=== PATIENT | male | born 1970 | race Caucasian/White ===

== ENCOUNTER 2019-02-17 09:21 | Inpatient (IN) ==
[2019-02-17] MEDS ORDERED: SODIUM CHLORIDE 0.9% 500 ML IV SCH (09:45)
[2019-02-17 10:09] LABS: Basophils # (auto) 0.02 K/uL (0-0.2); Basophils % (auto) 0.2 %; Eosinophils # (auto) 0.03 K/uL (0-0.5); Eosinophils % (auto) 0.3 %; Hematocrit (blood only) 37.4 % (42-52); Hemoglobin 13.4 g/dL (14.0-18.0); Immature Granulocytes # (auto) 0.03 K/uL (0.00-0.02); Immature Granulocytes % (auto) 0.3 %; Lymphocytes # (auto) 1.68 K/uL (1.2-3.4); Mean Corpuscular Hgb Conc 35.8 g/dL (32-36); Mean Corpuscular Volume 82.7 fL (80-100); Monocytes # (auto) 0.91 K/uL (0.11-0.59); Monocytes % (auto) 8.6 %; Neutrophils # (auto) 7.86 K/uL (1.4-6.5); Neutrophils % (auto) 74.6 %; Platelet Count 573 K/uL (130-400); RDW Coefficient of Variation 12.5 % (11.5-14.5); RDW Standard Deviation 37.4 fL (36.4-46.3); Red Blood Count 4.52 M/uL (4.7-6.1); White Blood Count 10.53 K/uL (4.8-10.8)
[2019-02-17 10:26] LABS: Alanine Aminotransferase 20 U/L (12-78); Albumin Level 3.7 gm/dl (3.4-5.0); Aspartate Aminotransferase 16 U/L (15-37); BUN Creatinine Ratio 14.8 (10-20); Blood Urea Nitrogen 20 mg/dl (7-18); Calcium 9.4 mg/dl (8.5-10.1); Carbon Dioxide 20 mmol/L (21-32); Chloride 104 mmol/L (98-107); Creatinine Clr Calc Pharmacy 60.2 ml/min; Est GFR (African American) 71.6; Est GFR (Non-African American) 61.8; Glucose 135 mg/dl (70-99); Magnesium 2.1 mg/dl (1.8-2.4); Potassium 3.6 mmol/L (3.5-5.1); Sodium 136 mmol/L (136-145)
[2019-02-17 10:36] LABS: Albumin Globulin Ratio 0.8 (0.9-2); Alkaline Phosphatase 136 U/L (45-117); Bilirubin,Total 0.6 mg/dl (0.2-1); Globulin 4.7 gm/dl (2.5-4.0); Total Protein 8.4 gm/dl (6.4-8.2); Troponin I < 0.015 ng/ml (0-0.045)
[2019-02-17] MEDS ORDERED: IOVERSOL 100ml IV PRN (10:41)
--- NOTE | 2019-02-17 10:59 | CT Scan Report ---
CT head/brain wo con CLINICAL HISTORY: 48 years-old Male with syncope. Acute syncope TECHNIQUE: Multiple axial CT images of the head were obtained without contrast. A dose lowering tech nique was utilized adhering to the principles of ALARA. COMPARISON: CT cervical spine of same day. FINDINGS: No acute intracranial hemorrhage, midline shift, intracranial mass, hydrocephalus, territorial ischem ia or abnormal extra-axial collection. Senescent calcifications noted about the left lentiform nucleu s. The calvarium is intact. The paranasal sinuses, mastoid air cells, and middle ear cavities are clear . IMPRESSION: No acute intracranial abnormality or calvarial fracture. The above report was generated using voice recognition software. It may contain grammatical, syntax o r spelling errors. Electronically signed by: Geoffrey Schwarz M.D. 02/17/2019 10:58 AM
--- NOTE | 2019-02-17 11:02 | CT Scan Report ---
CERVICAL SPINE CT CT DOSE: 1260.91 mGy.cm HISTORY: fall, trauma TECHNIQUE: Multiaxial CT images of the cervical spine were performed and reformatted in the sagittal and coronal plane without the use of contrast. A dose lowering technique was utilized adhering to th e principles of ALARA. COMPARISON: None. FINDINGS: No fractures. No subluxation. Prevertebral soft tissues and the C1-C2 interval are intact. No pneumothorax. Reversal of the normal lordotic curvature. Mild to moderate disc space narrowing fro m C3 through C7. IMPRESSION: No fractures within the cervical spine. Electronically signed by: Vasquez Lester M.D. 02/17/2019 11:00 AM
--- NOTE | 2019-02-17 11:09 | CT Scan Report ---
CT soft tissue neck w con HISTORY: 48 years-old Male eval for abcess acute neck pain COMPARISON: CT head and CT cervical spine studies of same day. TECHNIQUE: Multiple axial CT images of the soft tissues of the neck were obtained following the intra venous ministration of 93 mL Optiray 320 IV contrast. A dose lowering technique was used consistent w ith the principals of ALARA. FINDINGS: There is a peripherally enhancing fluid collection centered about the left division sergeant space within th e left lateral pterygoid muscle measuring 3.3 x 2.2 x 2.4 cm (image 80 of series 106). Nasopharynx is patent. Mild prominence of the adenoid tonsils. 6 mm polypoid mucosal thickening of the right maxill annabella sinus. No prevertebral or retropharyngeal fluid collection. Paracentral fat planes are symmetric and well-maintained. Sublingual, submandibular and parotid glands appear unremarkable. Thyroid is unr emarkable. Subcentimeter hypodense posterior right thyroid nodule. No adenopathy by CT size criteria. Glottis and subglottic airway appear unremarkable. Vascular structures about the neck appear to be w ithin normal limits. Orbits are unremarkable. No acute intracranial abnormality. No pneumothorax. Ion g apices appear clear. Spondylitic spurring and facet arthrosis of the spine. Minimal mucosal thicken ing about the ethmoid sinuses. IMPRESSION: 1. Peripherally enhancing intramuscular fluid collection compatible with abscess involves the left la teral pterygoid. Airway appears patent. No retropharyngeal involvement. 2. No adenopathy. 3. Mild paranasal sinus disease. The above report was generated using voice recognition software. It may contain grammatical, syntax o r spelling errors. Electronically signed by: Geoffrey Schwarz M.D. 02/17/2019 11:08 AM
[2019-02-17 11:48] LABS: Appearance Urine Clear (Clear); Bilirubin Urine Negative (Negative); Blood Urine Negative (Negative); Color Urine Yellow; Glucose Urine UA Negative (Negative); Ketones Urine 1+ (Negative); Leukocyte Esterase Urine Negative (Negative); Nitrite Urine Negative (Negative); Protein Urine Negative (Negative); Specific Gravity Urine 1.031 (1.000-1.030); Urobilinogen Urine Negative (Negative); pH Urine 6.5 (4.5-7.5)
--- NOTE | 2019-02-17 11:54 | XRay Report ---
XR mandible min 4V routine CLINICAL HISTORY: eval for impacted tooth left lower side COMPARISON STUDY: Neck CT 02/17/2019. FINDINGS: The most distal bilateral mandibular/lower molars are impacted. The right lower molar demon strates partial interruption but is primarily impacted. There is also suggestion of an impacted left upper molar. No periapical lucencies identified within the mandible or maxilla. Suspect a small focal cavity within the medial aspect of ADA 9. IMPRESSION: 1. Impacted bilateral lower molars. 2. There is also suggestion of an impacted left upper molar. Electronically signed by: Vasquez Lester M.D. 02/17/2019 11:53 AM
[2019-02-17] MEDS ORDERED: AMPICILLIN/SULBACTAM SOD 3,000 MG in 0.9 % SODIUM CHLORIDE 100 ML IV STA (12:13)
[2019-02-17] MEDS ORDERED: MoRPHine SULFATE 4 MG/ML 1 ML CARP\\VIAL IV STA (13:17)
[2019-02-17] MEDS ORDERED: ACETAMINOPHEN 1000 MG/100 ML IV IV PRN (14:21)
[2019-02-17] MEDS ORDERED: MoRPHine SULFATE 4 MG/ML 1 ML CARP\\VIAL IV PRN (14:21)
[2019-02-17] MEDS ORDERED: ACETAMINOPHEN 325 MG TAB PO PRN (14:21)
--- NOTE | 2019-02-17 14:48 | History & Physical Report ---
Date of Service February 17, 2019 Assessment & Plan (1) Dental abscess: (2) Facial abscess: -Admit to [facility] with telemetry -Patient presenting from [facility] for evaluation of a syncopal episode which will be described below -Has been being treated for a left facial/dental abscess for the past 2 weeks with oral clindamycin -CT neck shows fluid collection centered about the left youth advocate space within the left lateral pterygoid muscle measuring 3.3 x 2.2 x 2.4 cm -Patient does not appear septic -Airway is currently maintained -ED notified Dr. Haywood who is planning on possible intervention tomorrow -Received IV Unasyn in the ED, will continue with (3) Syncope: -Likely vasovagal/due to hypovolemia from recent poor p.o. intake -Head CT negative -Troponin negative, EKG without acute ST changes -Continue supportive care with IVF -Monitor orthostatic BPs -Monitor on telemetry -Consider further work-up if recurrence (4) HTN (hypertension): -BP elevated, likely secondary to pain and missed medications this morning -will attempt pain control and give home doses of lisinopril and amlodipine now -Holding chlorthalidone while receiving IVF as above -Continue monitor BP, provide additional antihypertensive if needed (5) DVT prophylaxis: -SCDs due to possible invasive procedure tomorrow History of Present Illness Chief Complaint: Syncope Primary Care Provider: [facility] 48-year-old male who presents to the ED for evaluation after a syncopal event today. Patient was seen in the ED on 02/09 for a dental/facial abscess. Prior to the ED visit, patient had been taking clindamycin for 6 days. Patient was discharged from the ED on 02/09 with instructions to continue clindamycin and to follow-up with Dr. Haywood. Patient reports he has been having increased pain and swelling to the left side of his face. He reports that he has felt feverish however did not take his temperature. He has had some green, purulent drainage from his bottom molars on the left. His oral intake has been significantly reduced because he is having trouble opening his mouth. Today, patient reports that when he stood up from his bed, he felt very lightheaded and subsequently passed out. He did strike his head. He was able to be aroused and was brought to the ED for further evaluation. Patient denies associated chest pain or shortness of breath. He had some numbness and tingling of both of his hands and arms however reports he was also hyperventilating the time. No other unilateral weakness. He has had a headache since a syncopal event. No abdominal pain, vomiting, nausea. Yesterday he reports he developed some diarrhea. He denies any urinary symptoms. In the ED, initial troponin is negative and EKG does not show any acute ST changes. Head CT and cervical spine CT are negative for acute findings. Patient is hypertensive but otherwise hemodynamically stable. CT neck shows peripherally enhancing intramuscular fluid collection compatible with abscess involves the left lateral pterygoid. Patient was given IVF and IV Unasyn. Allergies Allergy/AdvReac Type Severity Reaction Status Date / Time Sulfa (Sulfonamide Allergy Unknown Unverified 02/17/19 10:21 Antibiotics) Home Medications Home Medications Medication Instructions Recorded Confirmed Type acetaminophen 650 mg PO TID PRN 02/09/19 02/17/19 History amlodipine 10 mg PO DAILY 02/09/19 02/17/19 History chlorthalidone 25 mg PO DAILY 02/09/19 02/17/19 History clindamycin HCl 150 mg PO TID 02/09/19 02/17/19 History lisinopril 40 mg PO DAILY 02/09/19 02/17/19 History naproxen 500 mg PO BID 02/09/19 02/17/19 History Past Med/Surg History Medical History Cervical stenosis of spine (Chronic) Herniated disc (Chronic) HTN (hypertension) (Chronic) Surgical History No pertinent past surgical history (Chronic) Family History Mother Lung cancer Father Heart disease Social History Preferred Language: Italian Communication Ability: Effective Drying And Winding Supervisor Required: No Beliefs That Will Affect Care: None Current Living Situation: Other Current Living Situation Comment: [facility] Other Information That Helps Us Care for You: No Feels Safe at Home: Yes Smoking Status: Former smoker Hx Alcohol Use: No Review of Systems Review of Systems: ROS per HPI, all other systems reviewed and negative Physical Exam Constitutional: WD/WN, vitals as above Eyes: PERRL, conjunctivae normal, anicteric sclerae ENMT: Ears: no external ear abnormality Nose: + face asymmetric (Left facial edema noted); no external nose abnormality Mouth: + trismus Respiratory: normal respiratory effort, lungs clear to auscultation Cardiovascular: Rate/Rhythm: regular rate and regular rhythm Vessels: normal peripheral pulses Extremities: no edema Gastrointestinal (Abdomen): normal bowel sounds, soft, nontender, no hepatosplenomegaly Musculoskeletal: no cyanosis or clubbing, extremities motor strength 5/5 Skin: no rashes, warm and dry Neurologic: PERRL, EOMI, accommodation nl, no face palsy, no dysarthria Psychiatric: A+Ox3, euthymic affect Results & Data Vital Signs (Past 12 Hours) Vital Signs Temp Pulse Pulse Resp BP BP Pulse Ox 02/17/19 13:00 98 H 16 204/109 H 98 02/17/19 11:15 107 H 16 173/114 H 100 02/17/19 09:48 100 02/17/19 09:31 37.0 C 98 H 16 172/118 H 100 Laboratory Results Short CBC 02/17/19 Range/Units 09:57 WBC 10.53 (4.8-10.8) K/uL Hgb 13.4 L (14.0-18.0) g/dL Hct 37.4 L (42-52) % Plt Count 573 H (130-400) K/uL BMP 02/17/19 09:57 Sodium 136 Potassium 3.6 Chloride 104 Carbon Dioxide 20 L BUN 20 H Creatinine 1.34 Glucose 135 H Calcium 9.4 Cardiac Enzymes 02/17/19 Range/Units 09:57 Troponin I < 0.015 (0-0.045) ng/ml Liver Function 02/17/19 Range/Units 09:57 Total Bilirubin 0.6 (0.2-1) mg/dl AST 16 (15-37) U/L ALT 20 (12-78) U/L Alkaline Phosphatase 136 H (45-117) U/L Albumin 3.7 (3.4-5.0) gm/dl Urine 02/17/19 Range/Units 11:30 Urine Color Yellow Urine Appearance Clear (Clear) Urine pH 6.5 (4.5-7.5) Ur Specific [place] 1.031 H (1.000-1.030) Urine Protein Negative (Negative) Urine Glucose (UA) Negative (Negative) Diagnostic Findings CERVICAL SPINE CT IMPRESSION: No fractures within the cervical spine. HEAD CT IMPRESSION: No acute intracranial abnormality or calvarial fracture. SOFT TISSUE NECK CT IMPRESSION: 1. Peripherally enhancing intramuscular fluid collection compatible with abscess involves the left lateral pterygoid. Airway appears patent. No retropharyngeal involvement. 2. No adenopathy. 3. Mild paranasal sinus disease. MANDIBLE X-RAY IMPRESSION: 1. Impacted bilateral lower molars. 2. There is also suggestion of an impacted left upper molar. Code Status & VTE Plan VTE Prophylaxis Plan VTE Prophylaxis will be ordered: Yes Supervising Physician Co-Signing Physician Notes I saw this patient with the physician sugar laboratory assistant, I participated in the history, physical, review of systems, and physical exam. I reviewed the medications with the patient and the physician sugar laboratory assistant and helped reconcile the medications. I helped take a detailed family and social history as well. I formulated the assessment and plan personally with the physician sugar laboratory assistant and went over it with the patient. ROS-No Headache, No Visual Changes, No Nausea, No Vomiting, No Fever, No Chills, No Neck Pain or Stiffness, No Chest Pain, No Palpitations, No SOB, No WHEATLEY, No Cough, No Sputum, No Wheezing, No Abdominal Pain, No Diarrhea, No Hematemesis, No Hemoptysis, No Unexpected Weight Loss, No Flank pain, No Melena, No Hematochezia, No Frequency, No Urgency, No Burning, No Hematuria, No Rashes, No Diaphoresis. Appetite is Normal, Sore Left Jaw and face Physical Exam Gen-AAO x 3, NAD, Afebrile Head-NCAT, EOMI, PERRLA, Anicteric Sclera, No Posterior Pharyngeal Erythema, Decr jaw ROM Neck-Supple, No JVD, No Thyromegaly, No Masses, No LAD, No Bruits Lungs-Clear to Auscultation Bilaterally, No Rales, No Rhonchi, No Wheezing, No Crepitus Chest-No S4, +S1, +S2, No S3, No Murmurs, No Rubs, No Gallops, No Ectopy Abdomen-Soft, Bowel Sounds Present, Non Tender, Non Distended, No Hepatomegaly, No Splenomegaly, No Palpable Masses, No Rebound, No Rigidity, No Guarding Musculoskeletal-Full Range of Motion Bilaterally, No CVAT Extremities-No Cyanosis, No Clubbing, No Edema Nuero-Cranial Nerves II-XII grossly intact, Motor WNL, DTRs WNL, Strength WNL, Non Focal Psych-Normal Mood
[2019-02-17] MEDS: AMLODIPINE BESYLATE 5 MG TAB PO SCH (15:43)
[2019-02-17] MEDS: SODIUM CHLORIDE 0.9% 1000ML 1,000 ML IV SCH (15:43)
[2019-02-17] MEDS: LISINOPRIL 40 MG TAB PO SCH (15:43)
[2019-02-17] MEDS: KETOROLAC TROMETHAMINE 15 MG/ML VIAL IV PRN (16:22)
--- NOTE | 2019-02-17 16:57 | Surgery Consultation ---
Date of Consultation February 17, 2019 Patient is a 48 y/o inmate at [facility]. CC=pain, swelling, sensitivity to pressure and temperature on the teeth lower left side. Pus extrudes from fistula distal to # 18. CT scan show increase of fluid w/in the left lateral massitor space since last week. He is in pain, has trismus and failed out patient treatment. [facility] planned to set him up for extraction of a few lower left teeth next month! His pain and swelling got worse and he was brought to ED --CT scan and plain XR show abscess left side and carious teeth # 18,20 and ? # 17 which is an impacted tooth. I am planning to take to OR for I&D of left facial abscess infection extraction of # 18 and # 20 and possible Impacted # 17 depending on findings at time of surgery. Reviewed risk=pain,swelling,bleeding, nerve injury which could be permanent, trismus, TMJ issues, dry socket, bone infection. Plan GA in OR tomorrow NPO 12 midnight Consent to be signed chart reviewed History of Present Illness Attending Physician: Suhail Adorno MD Allergies Allergy/AdvReac Type Severity Reaction Status Date / Time Sulfa (Sulfonamide Allergy Unknown Unverified 02/17/19 10:21 Antibiotics) Home Medications Home Medications Medication Instructions Recorded Confirmed Type acetaminophen 650 mg PO TID PRN 02/09/19 02/17/19 History amlodipine 10 mg PO DAILY 02/09/19 02/17/19 History chlorthalidone 25 mg PO DAILY 02/09/19 02/17/19 History clindamycin HCl 150 mg PO TID 02/09/19 02/17/19 History lisinopril 40 mg PO DAILY 02/09/19 02/17/19 History naproxen 500 mg PO BID 02/09/19 02/17/19 History Patient History Medical History Cervical stenosis of spine (Chronic) Herniated disc (Chronic) HTN (hypertension) (Chronic) Surgical History No pertinent past surgical history (Chronic) Family History Mother Lung cancer Father Heart disease Social History Preferred Language: German Communication Ability: Effective Certified Physical Therapist Assistant Required: No Beliefs That Will Affect Care: None Current Living Situation: Other Current Living Situation Comment: [facility] Other Information That Helps Us Care for You: No Feels Safe at Home: Yes Smoking Status: Former smoker Hx Alcohol Use: No Results & Data Vital Signs (Past 12 Hours) Vital Signs Temp Pulse Pulse Resp BP BP Pulse Ox 02/17/19 15:03 37.0 C 95 H 20 160/98 H 99 02/17/19 14:48 37.3 C 96 H 18 167/112 H 100 02/17/19 13:00 98 H 16 204/109 H 98 02/17/19 11:15 107 H 16 173/114 H 100 02/17/19 09:48 100 02/17/19 09:31 37.0 C 98 H 16 172/118 H 100
[2019-02-17] MEDS: AMPICILLIN/SULBACTAM SOD 3,000 MG in 0.9 % SODIUM CHLORIDE 100 ML IV SCH (18:21)
[2019-02-18] MEDS: AMPICILLIN/SULBACTAM SOD 3,000 MG in 0.9 % SODIUM CHLORIDE 100 ML IV SCH ×5 (00:35→23:40)
[2019-02-18] MEDS: KETOROLAC TROMETHAMINE 15 MG/ML VIAL IV PRN ×2 (00:35→17:59)
[2019-02-18] MEDS: SODIUM CHLORIDE 0.9% 1000ML 1,000 ML IV SCH ×3 (00:35→23:05)
[2019-02-18] MEDS: AMLODIPINE BESYLATE 5 MG TAB PO SCH (07:35)
[2019-02-18] MEDS: LISINOPRIL 40 MG TAB PO SCH (07:35)
[2019-02-18 07:42] LABS: Hematocrit (blood only) 33.3 % (42-52); Hemoglobin 11.5 g/dL (14.0-18.0); Mean Corpuscular Hgb Conc 34.5 g/dL (32-36); Mean Corpuscular Volume 84.3 fL (80-100); Mean Platelet Volume 8.8 fL (7.4-10.4); Platelet Count 444 K/uL (130-400); RDW Coefficient of Variation 12.7 % (11.5-14.5); RDW Standard Deviation 39.1 fL (36.4-46.3); Red Blood Count 3.95 M/uL (4.7-6.1); White Blood Count 8.16 K/uL (4.8-10.8)
[2019-02-18 08:30] LABS: BUN Creatinine Ratio 10.2 (10-20); Calcium 8.7 mg/dl (8.5-10.1); Creatinine Clr Calc Pharmacy 70.9 ml/min; Est GFR (African American) 104.5; Est GFR (Non-African American) 90.2; Potassium 4.1 mmol/L (3.5-5.1); Prostate Specific Antigen 0.714 ng/ml (0-4)
[2019-02-18] MEDS ORDERED: BUPIVACAINE/EPINEPHRINE 0.5% 1:200,000 1.8 ML CARP ONE (08:45)
[2019-02-18] MEDS ORDERED: MIDAZOLAM HCL 1 MG/ML 2ML VIAL ONE (08:48)
[2019-02-18] MEDS ORDERED: LIDOCAINE HCL 2% 2 ML VIAL/AMP(20MG/ML) INFIL ONE (08:48)
[2019-02-18] MEDS ORDERED: fentaNYL citrate 100 MCG/2 ML VIAL ONE (08:48)
[2019-02-18] MEDS ORDERED: PROPOFOL IV EMULSION 10 MG/ML 20 ML VIAL IV ONE (08:48)
[2019-02-18] MEDS ORDERED: ONDANSETRON INJ 2 MG/ML 2 ML VIAL ONE (08:48)
[2019-02-18] MEDS ORDERED: LARYING-O-JET KIT (LTA) ONE (08:48)
[2019-02-18] MEDS ORDERED: SUCCINYLCHOLINE CHLORIDE 20 MG/ML 10 ML VIAL ONE (08:48)
[2019-02-18] MEDS ORDERED: KETOROLAC 30 MG/ML VIAL ONE (08:48)
[2019-02-18] MEDS ORDERED: DEXAMETHASONE SOD INJ 4 MG/ML VIAL ONE (08:48)
[2019-02-18] MEDS ORDERED: ROCURONIUM BROMIDE 10 MG/ML 5 ML VIAL ONE (08:48)
--- NOTE | 2019-02-18 08:55 | History & Physical Bridge Note ---
Date of Service February 18, 2019 History & Physical Bridge Note I have examined the patient, reviewed the History & Physical and in the interval since the performance of the History & Physical I have noted the following changes of clinical significance: no changes noted Review of the XRs show carious # 18 and 20 which are very sensitive to pressure and percussion. Plan surgery this AM with I&D with extractions evaluate CBI # 17 and remove only as needed as this tooth is very deep.
[2019-02-18] MEDS ORDERED: STERILE IRRIGATING OPTH SOLUTION (BSS) 15ML ONE (08:57)
[2019-02-18] MEDS ORDERED: CHLORHEXIDINE GLUCONATE 0.12% 480 ML ONE (08:58)
--- NOTE | 2019-02-18 09:05 | Anesthesiology Consultation ---
Date of Service February 18, 2019 Assessment & Plan (1) Encounter for pre-operative examination: Chart Review Chart Review: Acceptable Risk for Surgery and Patient NOT seen in Pre Admission Testing Consults Requested none ASA ASA2 Proposed Anesthesia Anesthesia Type: General Risk / Benefits Reviewed With: PT / POA / Parent / Guardian, Accepts Plan and In formed Consent Obtained History Surgery Operation Date: 02/18/19 09:10 Proposed Procedures p Removal of Teeth x3 - #17, #18, and #20; Left Incision and Drainge Facial Cellulitis - Sourav Haywood DMD Height/Weight Height: 5 ft 4 in Weight: 55 kg Allergies Allergy/AdvReac Type Severity Reaction Status Date / Time Sulfa (Sulfonamide Allergy Rash Unverified 02/18/19 08:27 Antibiotics) Medications Home Medications Medication Instructions Recorded Confirmed Last Taken acetaminophen 650 mg PO TID PRN 02/09/19 02/17/19 02/17/19 amlodipine 10 mg PO DAILY 02/09/19 02/17/19 02/16/19 chlorthalidone 25 mg PO DAILY 02/09/19 02/17/19 02/16/19 clindamycin HCl 150 mg PO TID 02/09/19 02/17/19 02/16/19 lisinopril 40 mg PO DAILY 02/09/19 02/17/19 02/16/19 naproxen 500 mg PO BID 02/09/19 02/17/19 02/16/19 Active Medications Generic Name Dose Route Start Last Admin Trade Name Freq PRN Reason Stop Dose Admin Acetaminophen 1,000 mg 02/17/19 14:21 02/17/19 22:03 Ofirmev IV 03/19/19 14:20 1,000 mg Q8H PRN Administration Moderate Pain Amlodipine Besylate 10 mg 02/17/19 14:21 02/18/19 07:35 Norvasc PO 03/19/19 14:20 10 mg DAILY EFREN Administration Sodium Chloride 1,000 mls @ 100 mls/hr 02/17/19 14:21 02/18/19 08:47 Nss 1000ml IV 03/19/19 14:20 0 mls/hr .Q10H EFREN Infusion Ampicillin Sodium/Sulbactam 108 mls @ 200 mls/hr 02/17/19 18:00 02/18/19 07:00 Sodium 3,000 mg/ Sodium IV 02/27/19 17:59 Infused Chloride Q6H EFREN Infusion Protocol Ketorolac Tromethamine 15 mg 02/17/19 16:09 02/18/19 00:35 Toradol IV 02/22/19 16:08 15 mg Q8H PRN Administration Pain Lisinopril 40 mg 02/17/19 14:21 02/18/19 07:35 Zestril PO 03/19/19 14:20 40 mg DAILY EFREN Administration Morphine Sulfate 4 mg 02/17/19 14:21 02/18/19 04:20 Morphine Sulfate IV 03/03/19 14:20 4 mg Q4H PRN Administration Severe Pain NPO Date Last Intake of Fluids: 02/17/19 Time Last Intake of Fluids: 22:30 Date Last Intake of Solids: 02/17/19 Time Last Intake of Solids: 22:30 Past Medical History Medical History Cervical stenosis of spine (Chronic) Herniated disc (Chronic) HTN (hypertension) (Chronic) Chronic kidney disease (CKD) Stage 3 Exercise / Class Metabolic Activity II 4-5 Yardwork/Stairs/Walk up hill Past Family History Family History Mother Lung cancer Father Heart disease Past Surgical History Surgical History No pertinent past surgical history (Chronic) History of sinus surgery Past Anesthesia History No Hx of Anesthesia Complications History of PONV No Hx of PONV and No Hx of Motion Sickness Social History Smoking Status: Former smoker Hx Alcohol Use: No Hx Substance Use: No Review of Systems Patient denies active symptoms of GERD. Negative for chest pain or shortness of breath. Physical Exam Vital Signs Last Vital Signs Temp 36.9 C 02/18/19 08:28 Pulse 81 02/18/19 08:28 Resp 20 02/18/19 08:28 BP 167/98 H 02/18/19 08:28 Pulse Ox 100 02/18/19 08:28 Constitutional not obese ENMT Mouth: + small oral opening; no TMJ abnormality Thyromental Distance: > or= 3.5 Finger Breadths Mallampati Class: III Mouth / Teeth: 1. Chipped Neck normal visual inspection; neck extension not limited Respiratory normal respiratory effort Auscultation: lungs clear to auscultation bilaterally Cardiovascular Rate/Rhythm: regular rate and regular rhythm Heart Sounds: no murmur Psychiatric Orientation: alert and oriented x 3 Testing Laboratory Results 02/18/19 07:24 02/18/19 07:24 Urine Color Yellow 02/17/19 11:30 Urine Appearance Clear (Clear) 02/17/19 11:30 Urine pH 6.5 (4.5-7.5) 02/17/19 11:30 Ur Specific [place] 1.031 (1.000-1.030) H 02/17/19 11:30 Urine Protein Negative (Negative) 02/17/19 11:30 Urine Glucose (UA) Negative (Negative) 02/17/19 11:30 Urine Ketones 1+ (Negative) H 02/17/19 11:30 Urine Nitrite Negative (Negative) 02/17/19 11:30 Ur Leukocyte Esterase Negative (Negative) 02/17/19 11:30
[2019-02-18] MEDS ORDERED: ONDANSETRON INJ 2 MG/ML 2 ML VIAL IV PRN (09:55)
[2019-02-18] MEDS ORDERED: ePHEDrine sulfate 50 MG/ML AMP IV PRN (09:55)
[2019-02-18] MEDS ORDERED: HYDROmorphone INJ 2 MG/ML SYR/VIAL IV PRN (09:55)
[2019-02-18] MEDS ORDERED: ATROPINE SULFATE 0.1 MG/ML 10ML SYR IV PRN (09:55)
[2019-02-18] MEDS ORDERED: PROMETHAZINE HCL 12.5 MG in SODIUM CHLORIDE 0.9% 50 ML IV PRN (09:55)
--- NOTE | 2019-02-18 10:42 | Post Operative Brief Note ---
Immediate Post Op Note v1 Date of Surgery February 18, 2019 Pre & Post Diagnosis Operation Date: 02/18/19 09:10 Pre-Op Diagnosis: DENTAL ABSCESS causing severe trismus and facial swelling Post-Op Diagnosis: DENTAL ABSCESS causing severe trismus and facial swelling left side Procedure Operation Date: 02/18/19 09:10 Actual Procedures p Removal of Teeth - Impacted complete #17, Surgical extraction abscessed #18, and #20; Left Incision and Drainage Facial Cellulitis(Left) - Sourav Haywood DMD Surgeon Sourav Haywood DMD Dock Operations Supervisor none Estimated Blood Loss 5 Findings Consistent with Post-Op Diagnosis
[2019-02-18] MEDS: fentaNYL citrate 100 MCG/2 ML VIAL IV PRN ×2 (11:20→11:31)
[2019-02-18] MEDS ORDERED: HydrALAZINE HCL 20 MG/ML VIAL IV STA (11:30)
[2019-02-18] MEDS ORDERED: HydrALAZINE HCL 20 MG/ML VIAL ONE (11:33)
--- NOTE | 2019-02-18 12:04 | Anesthesiology Progress Note ---
Date of Service February 18, 2019 Anesthesia Post Procedure Vital Signs Vital Signs: Temp Pulse Pulse Pulse Resp BP BP 02/18/19 11:55 36.5 C 69 12 167/82 H 02/18/19 11:50 87 11 L 164/102 H 02/18/19 11:40 62 11 L 170/86 H 02/18/19 11:30 66 11 L 171/112 H 02/18/19 11:20 64 16 185/103 H 02/18/19 11:10 64 16 181/112 H 02/18/19 11:00 67 13 170/117 H 02/18/19 10:52 36.2 C L 64 15 159/93 H 02/18/19 08:28 36.9 C 81 20 167/98 H 02/18/19 07:13 36.8 C 64 18 155/91 H 02/18/19 04:00 36.7 C 69 19 143/78 H 02/17/19 23:25 36.8 C 80 18 152/90 H 02/17/19 22:30 90 02/17/19 19:20 37.2 C 89 20 122/74 02/17/19 15:03 37.0 C 95 H 20 160/98 H 02/17/19 14:48 37.3 C 96 H 18 167/112 H 02/17/19 13:00 98 H 16 204/109 H Pulse Ox 02/18/19 11:55 98 02/18/19 11:50 97 02/18/19 11:40 96 02/18/19 11:30 97 02/18/19 11:20 100 02/18/19 11:10 100 02/18/19 11:00 100 02/18/19 10:52 100 02/18/19 08:28 100 02/18/19 07:13 98 02/18/19 04:00 99 02/17/19 23:25 97 02/17/19 22:30 02/17/19 19:20 97 02/17/19 15:03 99 02/17/19 14:48 100 02/17/19 13:00 98 Pain Intensity Teeth: Pain Intensity: 5 Transfer of Care Handoff Completed per policy Notes Mental Status: alert / awake / arousable and participated in evaluation Patient Amnestic to Procedure: Yes Nausea / Vomiting: adequately controlled Pain: adequately controlled Airway Patency, RR, SpO2: stable & adequate BP & HR: stable & adequate Hydration State: stable & adequate Anesthetic Complications: no major complications apparent and Pt Satisfied with anesthetic care
--- NOTE | 2019-02-18 15:59 | Hospitalist Progress Note ---
Date of Service February 18, 2019 Assessment & Plan (1) Dental abscess: Status post extraction of 3 teeth. #17, #18 and #20 on 02/18 Complains of some pain Appreciate input from Dr. Haywood Will advance diet as tolerated Likely discharge tomorrow on oral Augmentin (2) Facial abscess: -Patient presenting from [facility] for evaluation of a syncopal episode which will be described below -Has been being treated for a left facial/dental abscess for the past 2 weeks with oral clindamycin -CT neck shows fluid collection centered about the left commissary assistant space within the left lateral pterygoid muscle measuring 3.3 x 2.2 x 2.4 cm -Received IV Unasyn in the ED and will continue -No facial cellulitis (3) Syncope: -Likely vasovagal/due to hypovolemia from recent poor p.o. intake -Head CT negative -Troponin negative, EKG without acute ST changes -Continue supportive care with IVF -Received intravenous fluid -Clinically stable (4) HTN (hypertension): -BP elevated, likely secondary to pain and missed medications this morning -Blood pressure is controlled -Continue with his home medication (5) DVT prophylaxis: -SCDs due to possible invasive procedure tomorrow Likely discharge tomorrow Subjective 02/18 The patient was seen and examined in medical floor He is status post removal of 3 teeth, #17,[address] haywood Complains to have pain and numbness in the left side of the face and lips No redness Has been tolerating clears orally Review of Systems Review of Systems: All systems reviewed and is unremarkable except as noted below Ear, Nose, Mouth, Throat: + facial pain, + mouth lesions and + dental pain Physical Exam Physical Exam: Minimal distress at rest status post teeth extraction x3 Constitutional: + ill appearing Eyes: PERRL, conjunctivae normal, anicteric sclerae ENMT: Ears: no external ear abnormality Nose: + face asymmetric (Left facial edema noted); no external nose abnormality Mouth: + trismus Respiratory: normal respiratory effort; no respiratory distress Auscultation: lungs clear to auscultation bilaterally Cardiovascular: Rate/Rhythm: regular rate and regular rhythm Vessels: normal peripheral pulses Extremities: no edema Gastrointestinal (Abdomen): Inspection/Auscultation: normal bowel sounds Percussion/Palpation: abdomen soft Musculoskeletal: no cyanosis or clubbing, extremities motor strength 5/5 Skin: no rashes, warm and dry Neurologic: PERRL, EOMI, accommodation nl, no face palsy, no dysarthria Psychiatric: A+Ox3, euthymic affect Results & Data Vital Signs (Past 12 Hours) Vital Signs Temp Pulse Pulse Resp BP BP Pulse Ox 02/18/19 15:23 37.2 C 107 H 18 135/86 98 02/18/19 14:04 36.5 C 90 18 146/81 H 99 02/18/19 11:55 36.5 C 69 12 167/82 H 98 02/18/19 11:50 87 11 L 164/102 H 97 02/18/19 11:49 36.7 C 88 18 151/86 H 97 02/18/19 11:40 62 11 L 170/86 H 96 02/18/19 11:30 66 11 L 171/112 H 97 02/18/19 11:20 64 16 185/103 H 100 02/18/19 11:10 64 16 181/112 H 100 02/18/19 11:00 67 13 170/117 H 100 02/18/19 10:52 36.2 C L 64 15 159/93 H 100 02/18/19 08:28 36.9 C 81 20 167/98 H 100 02/18/19 07:13 36.8 C 64 18 155/91 H 98 02/18/19 04:00 36.7 C 69 19 143/78 H 99 Laboratory Results Short CBC 02/18/19 Range/Units 07:24 WBC 8.16 (4.8-10.8) K/uL Hgb 11.5 L (14.0-18.0) g/dL Hct 33.3 L (42-52) % Plt Count 444 H (130-400) K/uL BMP 02/18/19 07:24 Sodium 141 Potassium 4.1 Chloride 108 H Carbon Dioxide 27 BUN 10 D Creatinine 0.98 D Glucose 98 Calcium 8.7 Medications Administered Current Inpatient Medications Acetaminophen (Tylenol) 650 mg PO Q4H PRN PRN Reason: pain/fever Stop: 03/19/19 14:20 Acetaminophen (Ofirmev) 1,000 mg IV Q8H PRN PRN Reason: Moderate Pain Stop: 03/19/19 14:20 Last Admin: 02/17/19 22:03 Dose: 1,000 mg Documented by: Amlodipine Besylate (Norvasc) 10 mg PO DAILY [facility] Stop: 03/19/19 14:20 Last Admin: 02/18/19 07:35 Dose: 10 mg Documented by: Sodium Chloride (Nss 1000ml) 1,000 mls @ 100 mls/hr IV .Q10H [facility] Stop: 03/19/19 14:20 Last Admin: 02/18/19 12:19 Dose: 100 mls/hr Documented by: Ampicillin Sodium/Sulbactam Sodium 3,000 mg/ Sodium Chloride 108 mls @ 200 mls/hr IV Q6H [facility]; Protocol Stop: 02/27/19 17:59 Last Admin: 02/18/19 12:05 Dose: Not Given Documented by: Ketorolac Tromethamine (Toradol) 15 mg IV Q8H PRN PRN Reason: Pain Stop: 02/22/19 16:08 Last Admin: 02/18/19 00:35 Dose: 15 mg Documented by: Lisinopril (Zestril) 40 mg PO DAILY [facility] Stop: 03/19/19 14:20 Last Admin: 02/18/19 07:35 Dose: 40 mg Documented by: Morphine Sulfate (Morphine Sulfate) 4 mg IV Q4H PRN PRN Reason: Severe Pain Stop: 03/03/19 14:20 Last Admin: 02/18/19 04:20 Dose: 4 mg Documented by:
[2019-02-19] MEDS: KETOROLAC TROMETHAMINE 15 MG/ML VIAL IV PRN ×3 (01:51→18:49)
[2019-02-19] MEDS: AMPICILLIN/SULBACTAM SOD 3,000 MG in 0.9 % SODIUM CHLORIDE 100 ML IV SCH ×4 (05:37→23:33)
--- NOTE | 2019-02-19 08:03 | Surgery Progress Note ---
Date of Service Post Op Day # 1 doing very well this AM. Still stiff jaw--suggested exersize to increase the opening. Swelling minimal for the surgery, oral area looks good OK for Discharge today--I sent instructions to [facility] for follow up care. Suggest that hospitalist service RX-Tylenol # 3 x 15 1 q 4 hrs and Augmentin 875 x 20 1 q 12 hrs for out patient medicine Suggested softer diet and increase as tolerated Impression: Leonel did very well from the surgery yesterday and is healing very well at this time. Please Discharge today. February 19, 2019 Results & Data Vital Signs (Past 12 Hours) Vital Signs Temp Pulse Pulse Pulse Resp BP Pulse Ox 02/19/19 07:06 37 C 92 H 16 123/71 97 02/19/19 05:00 36.9 C 58 L 20 126/63 98 02/19/19 00:00 92 H 02/18/19 22:51 36.6 C 83 18 117/73 97
[2019-02-19] MEDS: AMLODIPINE BESYLATE 5 MG TAB PO SCH (08:14)
[2019-02-19] MEDS: LISINOPRIL 40 MG TAB PO SCH (08:14)
[2019-02-19] MEDS: SODIUM CHLORIDE 0.9% 1000ML 1,000 ML IV SCH ×2 (08:18→18:56)
--- NOTE | 2019-02-19 11:26 | Emergency Department Note ---
Entered by Serenity Quispe acting as a scribe for History of Present Illness General Chief complaint: Head Injury, Minor Time Seen by Provider: 02/17/19 09:34 Source: patient History of Present Illness Onset (ago): hour(s) (this morning) Location: head Pain Consistency: + other (episode) Maximum Pain Intensity: 7 Quality: + other (injury secondary to a fall) Associated symptoms: + other (left eye pressure/pain, diarrhea (resolved), fever (resolved), dizziness, loss of consciousness) The patient is a 48 year old male that is presenting to the Emergency Room with complaints of an episode of a head injury that occurred this morning after a fall. The patient reports that he felt dizzy while walking and went to sit down when he fell. He states that he was told he lost consciousness and that he was found unresponsive on the floor. He notes that he believes he hit the back of his head due to the pain in that area. He reports that he has head pain and left eye pain. He notes that he feels a pressure in his left eye. He denies any chest pain, shortness of breath, or abdominal pain. The patient denies any injuries below the neck. He notes that he has some neck pain at baseline and is unsure if he has any new neck injury. He reports that he had a fever and diarrhea yesterday which has since resolved. The patient notes that he has jaw pain due to a dental infection. He states that he has difficulty eating and talking secondary to the pain. Home Medications Home Medications Medication Instructions Recorded Confirmed Type acetaminophen 650 mg PO TID PRN 02/09/19 02/17/19 History amlodipine 10 mg PO DAILY 02/09/19 02/17/19 History chlorthalidone 25 mg PO DAILY 02/09/19 02/17/19 History clindamycin HCl 150 mg PO TID 02/09/19 02/17/19 History lisinopril 40 mg PO DAILY 02/09/19 02/17/19 History naproxen 500 mg PO BID 02/09/19 02/17/19 History Allergies Allergy/AdvReac Type Severity Reaction Status Date / Time Sulfa (Sulfonamide Allergy Rash Unverified 02/18/19 08:27 Antibiotics) Past Med/Surg History Medical History Cervical stenosis of spine (Chronic) Herniated disc (Chronic) HTN (hypertension) (Chronic) Chronic kidney disease (CKD) Stage 3 Surgical History No pertinent past surgical history (Chronic) History of sinus surgery Family History Mother Lung cancer Father Heart disease Social History Preferred Language: Persian Communication Ability: Effective C.O.D. Audit Clerk Required: No Beliefs That Will Affect Care: None Current Living Situation: Other Current Living Situation Comment: [facility] Other Information That Helps Us Care for You: No Feels Safe at Home: Yes Smoking Status: Former smoker Hx Alcohol Use: No Hx Substance Use: No Review of Systems See HPI for pertinent positives & negatives. and A total of 10 systems reviewed and were otherwise negative Physical Exam Vital Signs Vital Signs - 24 hr 02/17/19 09:31 02/17/19 09:48 02/17/19 11:15 Temperature 98.6 F Temperature Source Oral Sepsis Recent Fever Within 48 Hours No Sepsis New/Unexplained Change in Mental Status No Sepsis Action Taken by Nursing No Action Required Pulse Rate 98 H Pulse Rate [Apical] 107 H Pulse Rhythm [Apical] Regular Pulse Strength [Apical] Normal Respiratory Rate 16 16 Respiratory Effort / Characteristics Non-Labored Non-Labored Spontaneous Respiratory Depth Normal Normal Respiratory Pattern Regular Blood Pressure 172/118 H Blood Pressure [Right Arm] 173/114 H Blood Pressure Mean 136 Blood Pressure Mean [Right Arm] 133 Blood Pressure Position [Right Arm] Lying Pulse Oximetry 100 100 100 Oxygen Delivery Method Room Air Room Air Room Air 02/17/19 13:00 Temperature Temperature Source Sepsis Recent Fever Within 48 Hours Sepsis New/Unexplained Change in Mental Status Sepsis Action Taken by Nursing Pulse Rate Pulse Rate [Apical] 98 H Pulse Rhythm [Apical] Pulse Strength [Apical] Respiratory Rate 16 Respiratory Effort / Characteristics Respiratory Depth Respiratory Pattern Blood Pressure Blood Pressure [Right Arm] 204/109 H Blood Pressure Mean Blood Pressure Mean [Right Arm] 140 Blood Pressure Position [Right Arm] Pulse Oximetry 98 Oxygen Delivery Method Room Air General: Non-ill appearing slender middle aged male who is boarded and collared. HEENT: Normal cephalic atraumatic. Pupils are equal round and reactive to light. Extraocular movements are intact. Oropharynx is pink with moist mucous membranes. No swelling of the mouth lips or tongue. Neck: Supple with a midline trachea. No meningeal signs or stiffness, no JVD or bruits. No Stridor. Chest: Clear to auscultation bilaterally. No wheezes or rhonchi. No increased work of breathing. Heart: regular rate and rhythm. Abdomen: Soft nontender, nondistended without rebound guarding or rigidity. Extremities: No cyanosis clubbing or edema. No calf tenderness or asymmetry Spine/Back. Non tender to palpation. No CVA tenderness Skin: Good turgor without rashes. Neurologic exam: Cranial nerves two through 12 are intact. Motor and sensation are intact and symmetrical throughout. Course 0936:The patient was evaluated in room B05. A complete history and physical examination was performed. 1106: I rechecked the patient at this time. He is resting comfortably and waiting on his CT results at this time. 1108: I removed the patients collar at this time. 1115: I discussed the patients case with Dr. Haywood, Oral Facial Surgery, who asked for a mandibular x-ray to evaluate for an impacted tooth. 1123: I updated the patient on his current lab and imaging results. He is amenable to the plan. 1212: I updated Dr. Haywood on the results of the patients CT scan. He recommended that the patient be started on IV antibiotics. He advised that the patient be revaluated by the hospitalist and states he will visit the patient after that time. 1220: I discussed the patients case with MARIELLA Mazariegos, who will evaluate the patient for further management and care with Dr. Murillo as her attending physician. 1230: Upon reevaluation, the patient is resting comfortably. I discussed laboratory and radiographic results with the patient. He verbalized agreement of the treatment plan. The patient will be evaluated for further management and care. Consultations Consultation #1: I discussed the patients case with Dr. Haywood, who asked for a mandibular x-ray to evaluate for an impacted tooth. Time: 11:15 Consultation #2: I updated Dr. Haywood on the results of the patients CT scan. He recommended that the patient be started on IV antibiotics. He advised that the patient be revaluated by the hospitalist and states he will visit the patient after that time. Time: 12:12 Consultation #3: I discussed the patients case with MARIELLA Mazariegos, who will evaluate the patient for further management and care with Dr. Murillo as her attending physician. Time: 12:20 Administered Medications Acetaminophen (Ofirmev) 1,000 mg IV Q8H PRN PRN Reason: Moderate Pain Stop: 03/19/19 14:20 Last Admin: 02/17/19 22:03 Dose: 1,000 mg Documented by: [id number] Amlodipine Besylate (Norvasc) 10 mg PO DAILY EFREN Stop: 03/19/19 14:20 Last Admin: 02/19/19 08:14 Dose: 10 mg Documented by: [id number] Admin: 02/18/19 07:35 Dose: 10 mg Documented by: [id number] Admin: 02/17/19 15:43 Dose: 10 mg Documented by: [id number] Sodium Chloride (Nss 1000ml) 1,000 mls @ 100 mls/hr IV .Q10H EFREN Stop: 03/19/19 14:20 Last Admin: 02/19/19 08:18 Dose: 100 mls/hr Documented by: [id number] Infusion: 02/19/19 08:18 Dose: 100 mls/hr Documented by: [id number] Admin: 02/18/19 23:05 Dose: 100 mls/hr Documented by: [id number] Infusion: 02/18/19 23:01 Dose: 100 mls/hr Documented by: [id number] Infusion: 02/18/19 18:41 Dose: 100 mls/hr Documented by: [id number] Infusion: 02/18/19 18:00 Dose: 0 mls/hr Documented by: [id number] Admin: 02/18/19 12:19 Dose: 100 mls/hr Documented by: [id number] Infusion: 02/18/19 12:19 Dose: 0 mls/hr Documented by: [id number] Infusion: 02/18/19 08:47 Dose: 0 mls/hr Documented by: [id number] Admin: 02/18/19 00:35 Dose: 100 mls/hr Documented by: [id number] Infusion: 02/18/19 00:35 Dose: 100 mls/hr Documented by: [id number] Admin: 02/17/19 15:43 Dose: 100 mls/hr Documented by: [id number] Ampicillin Sodium/Sulbactam Sodium 3,000 mg/ Sodium Chloride 108 mls @ 200 mls/hr IV Q6H EFREN; Protocol Stop: 02/27/19 17:59 Last Infusion: 02/19/19 06:19 Dose: 0 mls/hr Documented by: [id number] Admin: 02/19/19 05:37 Dose: 200 mls/hr Documented by: [id number] Infusion: 02/19/19 00:44 Dose: 0 mls/hr Documented by: [id number] Admin: 02/18/19 23:40 Dose: 200 mls/hr Documented by: [id number] Infusion: 02/18/19 18:33 Dose: 0 mls/hr Documented by: [id number] Admin: 02/18/19 18:00 Dose: 200 mls/hr Documented by: [id number] Admin: 02/18/19 12:05 Dose: Not Given Documented by: [id number] Infusion: 02/18/19 07:00 Dose: 0 mls/hr Documented by: [id number] Admin: 02/18/19 05:56 Dose: 200 mls/hr Documented by: [id number] Infusion: 02/18/19 01:12 Dose: 0 mls/hr Documented by: [id number] Admin: 02/18/19 00:35 Dose: 200 mls/hr Documented by: [id number] Infusion: 02/17/19 18:58 Dose: 0 mls/hr Documented by: [id number] Admin: 02/17/19 18:21 Dose: 200 mls/hr Documented by: [id number] Ketorolac Tromethamine (Toradol) 15 mg IV Q8H PRN PRN Reason: Pain Stop: 02/22/19 16:08 Last Admin: 02/19/19 10:24 Dose: 15 mg Documented by: [id number] Admin: 02/19/19 01:51 Dose: 15 mg Documented by: [id number] Admin: 02/18/19 17:59 Dose: 15 mg Documented by: [id number] Admin: 02/18/19 00:35 Dose: 15 mg Documented by: [id number] Admin: 02/17/19 16:22 Dose: 15 mg Documented by: [id number] Lisinopril (Zestril) 40 mg PO DAILY EFREN Stop: 03/19/19 14:20 Last Admin: 02/19/19 08:14 Dose: 40 mg Documented by: [id number] Admin: 02/18/19 07:35 Dose: 40 mg Documented by: [id number] Admin: 02/17/19 15:43 Dose: 40 mg Documented by: [id number] Morphine Sulfate (Morphine Sulfate) 4 mg IV Q4H PRN PRN Reason: Severe Pain Stop: 03/03/19 14:20 Last Admin: 02/18/19 04:20 Dose: 4 mg Documented by: [id number] Discontinued Medications Bupivacaine HCl (Marcaine/Epinephrine Carp) Confirm Administered Dose 10.8 ml .ROUTE .STK-MED ONE Stop: 02/18/19 08:46 Last Admin: 02/18/19 10:30 Dose: 3.6 ml Documented by: [id number] Chlorhexidine Gluconate (Peridex) Confirm Administered Dose 480 ml .ROUTE .STK- MED ONE Stop: 02/18/19 08:59 Last Admin: 02/18/19 10:16 Dose: 20 ml Documented by: [id number] Fentanyl Citrate (Fentanyl Citrate) 50 mcg IV Q5M PRN PRN Reason: PACU Use Only-Pain Stop: 02/18/19 14:55 Last Admin: 02/18/19 11:31 Dose: 50 mcg Documented by: [id number] Admin: 02/18/19 11:20 Dose: 50 mcg Documented by: [id number] Hydralazine HCl (Hydralazine Hcl) 10 mg IV NOW STA Stop: 02/18/19 11:31 Last Admin: 02/18/19 11:34 Dose: 10 mg Documented by: [id number] Hydralazine HCl (Hydralazine Hcl) Confirm Administered Dose 20 mg .ROUTE .STK- MED ONE Stop: 02/18/19 11:34 Last Admin: 02/18/19 12:05 Dose: Not Given Documented by: [id number] Sodium Chloride (Nss) 500 mls @ 999 mls/hr IV .Q31M EFREN Stop: 02/17/19 10:15 Last Infusion: 02/17/19 10:37 Dose: 0 mls/hr Documented by: [id number] Admin: 02/17/19 10:00 Dose: 999 mls/hr Documented by: [id number] Ampicillin Sodium/Sulbactam Sodium 3,000 mg/ Sodium Chloride 108 mls @ 216 mls/hr IV NOW STA Stop: 02/17/19 12:42 Last Infusion: 02/17/19 13:23 Dose: 0 mls/hr Documented by: [id number] Admin: 02/17/19 12:53 Dose: 216 mls/hr Documented by: [id number] Ioversol (Optiray 320 100ml) 93 ml IV ONCE PRN PRN Reason: Interaction Checking Stop: 02/21/19 10:40 Last Admin: 02/17/19 10:45 Dose: 93 ml Documented by: [id number] Morphine Sulfate (Morphine Sulfate) 4 mg IV NOW STA Stop: 02/17/19 13:18 Last Admin: 02/17/19 13:46 Dose: 4 mg Documented by: [id number] Ondansetron HCl (Zofran) 4 mg IV ONCE PRN PRN Reason: PACU Use Only-Nausea/Vomiting Stop: 02/18/19 14:56 Last Admin: 02/18/19 11:08 Dose: 4 mg Documented by: [id number] Sod Cl/Ca Cl/Mg Cl/Pot Cl (Bss Opth Soln) Confirm Administered Dose 225 drops .ROUTE .STK-MED ONE Stop: 02/18/19 08:58 Last Admin: 02/18/19 10:16 Dose: Not Given Documented by: [id number] Medical Decision Making Differential Diagnosis Differential diagnosis: Etiologies such as trauma, syncope, dental abscess, electrolyte or metabolic abnormalities, infection as well as others were entertained. Medical Records Attestation: I reviewed the patient's medical records. Home Medications Current Medication List: was personally reviewed by me Laboratory Data Attestation: I reviewed the patient's lab results. Result diagrams: 02/18/19 07:24 02/18/19 07:24 Lab Results 02/17/19 02/17/19 02/17/19 Range/Units 09:57 09:57 11:30 WBC 10.53 (4.8-10.8) K/uL RBC 4.52 L (4.7-6.1) M/uL Hgb 13.4 L (14.0-18.0) g/dL Hct 37.4 L (42-52) % MCV 82.7 (80-100) fL MCH 29.6 (25-34) pg MCHC 35.8 (32-36) g/dL RDW Std Deviation 37.4 (36.4-46.3) fL RDW Coeff of Melissa 12.5 (11.5-14.5) % Plt Count 573 H (130-400) K/uL MPV 9.0 (7.4-10.4) fL Immature Gran % (Auto) 0.3 % Neut % (Auto) 74.6 % Lymph % (Auto) 16.0 % [place] % (Auto) 8.6 % Eos % (Auto) 0.3 % Baso % (Auto) 0.2 % Immature Gran # (Auto) 0.03 H (0.00-0.02) K/uL Neut # (Auto) 7.86 H (1.4-6.5) K/uL Lymph # (Auto) 1.68 (1.2-3.4) K/uL [place] # (Auto) 0.91 H (0.11-0.59) K/uL Eos # (Auto) 0.03 (0-0.5) K/uL Baso # (Auto) 0.02 (0-0.2) K/uL Sodium 136 (136-145) mmol/L Potassium 3.6 (3.5-5.1) mmol/L Chloride 104 (98-107) mmol/L Carbon Dioxide 20 L (21-32) mmol/L Anion Gap 13.0 H (3-11) BUN 20 H (7-18) mg/dl Creatinine 1.34 (0.6-1.4) mg/dl Est Cr Clr Drug Dosing 60.2 ml/min Est GFR ( Amer) 71.6 Est GFR (Non-Af Amer) 61.8 BUN/Creatinine Ratio 14.8 (10-20) Glucose 135 H (70-99) mg/dl Calcium 9.4 (8.5-10.1) mg/dl Magnesium 2.1 (1.8-2.4) mg/dl Total Bilirubin 0.6 (0.2-1) mg/dl AST 16 (15-37) U/L ALT 20 (12-78) U/L Alkaline Phosphatase 136 H (45-117) U/L Troponin I < 0.015 (0-0.045) ng/ml Total Protein 8.4 H (6.4-8.2) gm/dl Albumin 3.7 (3.4-5.0) gm/dl Globulin 4.7 H (2.5-4.0) gm/dl Albumin/Globulin Ratio 0.8 L (0.9-2) TSH 1.040 (0.300-4.500) uIu/ml Urine Color Yellow Urine Appearance Clear (Clear) Urine pH 6.5 (4.5-7.5) Ur Specific [place] 1.031 H (1.000-1.030) Urine Protein Negative (Negative) Urine Glucose (UA) Negative (Negative) Urine Ketones 1+ H (Negative) Urine Blood Negative (Negative) Urine Nitrite Negative (Negative) Urine Bilirubin Negative (Negative) Urine Urobilinogen Negative (Negative) Ur Leukocyte Esterase Negative (Negative) Imaging Data Radiologist's Impression: Radiology results as stated below per my review and the radiologist's interpretation: CERVICAL SPINE CT CT DOSE: 1260.91 mGy.cm HISTORY: fall, trauma TECHNIQUE: Multiaxial CT images of the cervical spine were performed and reformatted in the sagittal and coronal plane without the use of contrast. A dose lowering technique was utilized adhering to the principles of ALARA. COMPARISON: None. FINDINGS: No fractures. No subluxation. Prevertebral soft tissues and the C1-C2 interval are intact. No pneumothorax. Reversal of the normal lordotic curvature. Mild to moderate disc space narrowing from C3 through C7. IMPRESSION: No fractures within the cervical spine. Electronically signed by: Vasquez Lester M.D. 02/17/2019 11:[address] head/brain wo con CLINICAL HISTORY: 48 years-old Male with syncope. Acute syncope TECHNIQUE: Multiple axial CT images of the head were obtained without contrast. A dose lowering technique was utilized adhering to the principles of ALARA. COMPARISON: CT cervical spine of same day. FINDINGS: No acute intracranial hemorrhage, midline shift, intracranial mass, hydrocephalus, territorial ischemia or abnormal extra-axial collection. Senescent calcifications noted about the left lentiform nucleus. The calvarium is intact. The paranasal sinuses, mastoid air cells, and middle ear cavities are clear. IMPRESSION: No acute intracranial abnormality or calvarial fracture. The above report was generated using voice recognition software. It may contain grammatical, syntax or spelling errors. Electronically signed by: Geoffrey Schwarz M.D. 02/17/2019 10:[address] soft tissue neck w con HISTORY: 48 years-old Male eval for abcess acute neck pain COMPARISON: CT head and CT cervical spine studies of same day. TECHNIQUE: Multiple axial CT images of the soft tissues of the neck were obtained following the intravenous ministration of 93 mL Optiray 320 IV contrast. A dose lowering technique was used consistent with the principals of LOUIS. FINDINGS: There is a peripherally enhancing fluid collection centered about the left screen examiner space within the left lateral pterygoid muscle measuring 3.3 x 2.2 x 2.4 cm (image 80 of series 106). Nasopharynx is patent. Mild prominence of the adenoid tonsils. 6 mm polypoid mucosal thickening of the right maxillary sinus. No prevertebral or retropharyngeal fluid collection. Paracentral fat planes are symmetric and well-maintained. Sublingual, submandibular and parotid glands appear unremarkable. Thyroid is unremarkable. Subcentimeter hypodense posterior right thyroid nodule. No adenopathy by CT size criteria. Glottis and subglottic airway appear unremarkable. Vascular structures about the neck appear to be within normal limits. Orbits are unremarkable. No acute intracranial abnormality. No pneumothorax. Lung apices appear clear. Spondylitic spurring and facet arthrosis of the spine. Minimal mucosal thickening about the ethmoid sinuses. IMPRESSION: 1. Peripherally enhancing intramuscular fluid collection compatible with abscess involves the left lateral pterygoid. Airway appears patent. No retropharyngeal involvement. 2. No adenopathy. 3. Mild paranasal sinus disease. The above report was generated using voice recognition software. It may contain grammatical, syntax or spelling errors. Electronically signed by: Geoffrey Schwarz M.D. 02/17/2019 11:08 AM XR mandible min 4V routine CLINICAL HISTORY: eval for impacted tooth left lower side COMPARISON STUDY: Neck CT 02/17/2019. FINDINGS: The most distal bilateral mandibular/lower molars are impacted. The right lower molar demonstrates partial interruption but is primarily impacted. There is also suggestion of an impacted left upper molar. No periapical lucencies identified within the mandible or maxilla. Suspect a small focal cavity within the medial aspect of ADA 9. IMPRESSION: 1. Impacted bilateral lower molars. 2. There is also suggestion of an impacted left upper molar. Electronically signed by: Vasquez Lester M.D. 02/17/2019 11:53 AM ECG Data Attestation: I personally reviewed and interpreted this ECG as follows: Indication: syncope Rate (beats per minute): 84 Rhythm: normal sinus Findings: + other (LVH); no PAC, no PVC, no ST depression, no ST elevation, no acute ischemic change and no ectopy Comparison ECG Date: no prior available Blood Pressure Blood Pressure Findings: Elevated blood pressure Blood Pressure Disposition: elevated BP felt to be situational MDM Narrative This patient comes in as described above. He was placed in room B5. He had a syncopal episode and hit his head he says he is been weak because he is had a hard time eating secondary to a dental abscess. I did do a CAT scan of his head neck and face. IV access established and he was hydrated with IV normal saline. EKG does not suggest acute coronary syndrome or significant arrhythmia. he has no significant for metabolic abnormalities. He did not have any significant injuries on the CAT scan. he does however have a growing abscess in the left face/jaw area. It may be dental or other. I discussed the case with Dr. Haywood. It is 3 times bigger than last CAT scan. Dr. Haywood recommends IV antibiotics which I ordered and the medical team will admit the patient and Dr. Haywood will take him to the operating room for drainage of the abscess and possible tooth removal as well. Impression & Plan Syncope, Concussion, Facial abscess, Dehydration Discharge Plan Visit Data *Final* Discharge Date/Time: 02/17/19 13:57 Chief Complaint: Head Injury, Minor ED Provider: Guru Elmore Discharge Problem: Syncope, Concussion, Facial abscess, Dehydration Patient Disposition: Admitted As Inpatient Discharge Instructions Interventions: ED Discharge Assessment Last Done: 02/17/19 13:57 The scribe's documentation has been prepared under my direction and personally reviewed by me in its entirety. I confirm that the note above accurately reflects all work, treatment, procedures, and medical decision making performed by me.
--- NOTE | 2019-02-19 16:55 | Operative Report ---
DATE OF OPERATION: 02/18/2019 ADMITTING DIAGNOSES: Acute left side facial cellulitis with significant trismus and abscessed lower teeth including impacted tooth #17 and fractured and carious teeth #18 and 20. POSTOPERATIVE DIAGNOSES: Acute left side facial cellulitis with significant trismus and abscessed lower teeth including impacted tooth #17 and fractured and carious teeth #18 and 20. OPERATION: Surgical incision and drainage via an intraoral route of the subperiosteal and the floor of the mouth infection, left side as well as removal of very deep complex wisdom tooth #17 and carious tooth #18 and 20. DESCRIPTION OF PROCEDURE: After this patient was cleared to undergo general anesthesia, he was brought down to the operating room and placed under general anesthesia via an orotracheal intubation. The patient had significant trismus and a very small mouth opening. The anesthesia department was able to use a GlideScope and did an oral intubation. I was able to then put a small biteblock in the mouth to enable me to render the surgery. The patient was exquisitely tender and swollen in the floor of the mouth on the left lingual side of the mandible as well as the whole facial mucobuccal fold. There was also submandibular swelling and trismus in the masseter muscle. The CT scanning demonstrated a collection of fluid that as a matter of fact got larger than smaller on outpatient medication. Because he failed outpatient therapy, the patient was admitted for the definitive incision and drainage and removal of the source of the infections. Prior to starting the operation, a time-out was taken. Everyone agreed that we indeed had Don Carroll in the room, we had the appropriate equipment, antibiotics were given on the floor and then we all agreed and the operation now began. The facial area was prepped in the usual manner. An oropharyngeal throat pack was placed, the oral cavity was irrigated with Peridex mouth rinse. Gauze dressings were applied around the oral tube. I then turned my attention first to the mandibular left side where an inferior alveolar nerve block was used with Marcaine anesthesia. After an adequate period of time to allow for hemostasis and local anesthetic effect, an electrocautery instrument was used to make a hockey stick incision on the external oblique ridge. Great care was taken to avoid any trauma to the lingual nerve. With the incision of approximately 1 cm, I then carried around tooth #18. A periosteal elevator was now used to make a full thickness mucoperiosteal flap. Just from doing the flap, a lot of pus extruded from the incision. At this time, I used a dental forcep and was able to remove the simple extraction of tooth #20, this tooth had a large periapical granuloma and I irrigated the socket and curettaged the socket. At this time, I continued my mucoperiosteal flap until I was able to see the defect in the mandible between the impacted tooth #17 and tooth #18. There was a very deep pocket filled with granulation tissue. Now with the use of a dental drill, I was able to remove the bone around the height of contour of tooth #17. The tooth was visualized. There was still a lot of granulation tissue that I was able to curette out. I now used a fissure bur and split the tooth into 2 equal pieces and removed from the oral cavity. Once this was done, I then removed tooth #18, which also had a rather large failing voodoo and no bone distal to the tooth. As a matter of fact, the root of tooth #18 was visualized. This tooth was removed without any complications. I was now left with a rather large defect. I used a bone file to smooth down the bone area. The nerve was not visualized. The bony margins were now smoothed, I spent a lot of time irrigating the wound. I then used a periosteal elevator and reflected the tissue on the lingual aspect of the mandible. Once again, a lot of drainage came out of this area which was in the form of pus and debris. I was able to palpate the submandibular gland area and the floor of the mouth and extruded some more material. At this time, I was very satisfied with the procedure. The area was then irrigated once again, I was certain that we took care of all the loculations of pus. I now closed the area with interrupted sutures using a 2-0 chromic suture. When all was said and done, we had good closure of the large defect area. The swelling has been relieved just from doing the intraoral incision and drainage. The patient tolerated the procedure extremely well. We will maintain him in the hospital for approximately 24 hours, if he continues to do well, he will be discharged back to [facility]. Once the operation was completed, the oropharyngeal throat pack was removed. The oral cavity was irrigated and suctioned dried. A gauze pressure dressing was applied to the left side. The patient was allowed to recover in the usual manner. When he was fully awake, he was extubated and brought to the recovery room breathing in satisfactory condition with all vital signs stable. The patient continued to do well in the recovery room and he was then transferred back to the second floor. The patient will be sent home on Sunday, most likely with a prescription for Augmentin 875 x20 which will be 1 every 12 hours and a prescription for Tylenol #3 15 one every 4-6 hours if this is permissible with the [facility] policies. I sent an email to a dentist in the dental clinic at the [facility] and he will be following the patient once the patient gets discharged from the hospital. The doctor that received my email was Dr. Christos Mejia and the email and call was sent to this doctor yesterday. I attest to the content of the Intraoperative Record and any orders documented therein. Any exception s are noted below.
--- NOTE | 2019-02-19 20:24 | Hospitalist Progress Note ---
Date of Service February 19, 2019 Assessment & Plan (1) Dental abscess: Status post extraction of 3 teeth. #17, #18 and #20 on 02/18 Still having significant pain today Discussed with Dr. Haywood [place] diet to minced and moist Increase Toradol to every 6 hours as needed, and Ofirmev every 8 hours scheduled Continue IV Unasyn Reevaluate tomorrow Plan to transition to oral Augmentin upon discharge (2) Facial abscess: -Patient presenting from [facility] for evaluation of a syncopal episode which will be described below -Has been being treated for a left facial/dental abscess for the past 2 weeks with oral clindamycin -CT neck shows fluid collection centered about the left bread packer space within the left lateral pterygoid muscle measuring 3.3 x 2.2 x 2.4 cm -No facial cellulitis (3) Syncope: -Likely vasovagal/due to hypovolemia from recent poor p.o. intake -Head CT negative -Troponin negative, EKG without acute ST changes -No recurrence, blood pressure stable (4) HTN (hypertension): Blood pressure under control -Continue with usual medications (5) DVT prophylaxis: -SCDs Disposition Pending, management and evaluation of dental abscess in progress, status post extraction Subjective Follow-up for facial cellulitis, dental abscess, status post tooth extraction Seen resting in bed, comfortable, nondistressed Does report pain on the teeth extraction site, also pain with mastication, also reports that he still cannot fully open his mouth due to pain Reevaluate in the afternoon, states he had some difficulty masticating soft diet Also still having 6 out of 10 pain, reports increased swelling of the left cheek and lip Denies shortness of breath, chest pain, dizziness, nausea No chills Denies any symptoms Review of Systems Review of Systems: All systems reviewed & are unremarkable except as noted in HPI & below Physical Exam Physical Exam: General- oriented x 3, not in distress, speaks in sentences w ith no effort or accessory muscle use Head- atraumatic Eyes- PERRL, EOMI, anicteric ENT-positive mild lower lip edema, right side no have diffuse edema with mild tenderness Positive mild trismus Positive edema of the left oral mucosa, no bleeding noted Otherwise essentially normal Negative for cervical lymphadenopathy Neck- supple, no JVD, no adenopathy, no thyromegaly; carotids +2/2, no bruits appreciated Lungs- clear to auscultation bilaterally, no rales/wheezes Heart- normal rate, regular rhythm; no murmur, no gallop, no rub appreciated Abdomen- normal bowel sounds, nondistended, soft, nontender, no masses or hepatosplenomegaly Extremities- no pretibial edema, no calf tenderness; peripheral pulses intact Neuro- alert, oriented x 3; CN 2-12 grossly intact; motor 5/5 bilaterall y;sensation 100% on all extremities; no other gross focal neurologic deficits Skin- warm & dry Results & Data Vital Signs (Past 12 Hours) Vital Signs Temp Pulse Pulse Resp BP BP Pulse Ox 02/19/19 19:45 37.1 C 96 H 18 134/82 99 02/19/19 15:11 98 H 02/19/19 15:09 37.2 C 109 H 18 125/72 96 02/19/19 11:15 37.2 C 104 H 16 109/66 92 Laboratory Results Laboratory Results - last 24 hr 02/19/19 19:06 Stl C. diff Tox B Gene TNP
[2019-02-19] MEDS: ACETAMINOPHEN 1000 MG/100 ML IV IV SCH (22:03)
[2019-02-20] MEDS: KETOROLAC TROMETHAMINE 15 MG/ML VIAL IV PRN (01:11)
[2019-02-20] MEDS: SODIUM CHLORIDE 0.9% 1000ML 1,000 ML IV SCH ×3 (05:50→17:11)
[2019-02-20] MEDS: ACETAMINOPHEN 325 MG TAB PO PRN ×2 (05:50→21:11)
[2019-02-20] MEDS: AMPICILLIN/SULBACTAM SOD 3,000 MG in 0.9 % SODIUM CHLORIDE 100 ML IV SCH ×4 (05:52→23:35)
[2019-02-20] MEDS: ACETAMINOPHEN 1000 MG/100 ML IV IV SCH ×3 (06:06→22:16)
[2019-02-20] MEDS: LORazepam 0.25 MG/0.5 ML VIAL IV PRN ×2 (06:06→22:34)
[2019-02-20] MEDS: AMLODIPINE BESYLATE 5 MG TAB PO SCH (08:40)
[2019-02-20] MEDS: LISINOPRIL 40 MG TAB PO SCH (08:41)
[2019-02-20 09:34] LABS: Basophils # (auto) 0.03 K/uL (0-0.2); Basophils % (auto) 0.3 %; Eosinophils # (auto) 0.06 K/uL (0-0.5); Eosinophils % (auto) 0.5 %; Hematocrit (blood only) 34.4 % (42-52); Hemoglobin 11.9 g/dL (14.0-18.0); Immature Granulocytes # (auto) 0.02 K/uL (0.00-0.02); Immature Granulocytes % (auto) 0.2 %; Lymphocytes # (auto) 1.82 K/uL (1.2-3.4); Lymphocytes % (auto) 16.5 %; Mean Corpuscular Hgb Conc 34.6 g/dL (32-36); Mean Corpuscular Volume 86.2 fL (80-100); Mean Platelet Volume 8.8 fL (7.4-10.4); Monocytes # (auto) 0.73 K/uL (0.11-0.59); Monocytes % (auto) 6.6 %; Neutrophils # (auto) 8.36 K/uL (1.4-6.5); Neutrophils % (auto) 75.9 %; Platelet Count 533 K/uL (130-400); RDW Coefficient of Variation 12.8 % (11.5-14.5); RDW Standard Deviation 40.6 fL (36.4-46.3); Red Blood Count 3.99 M/uL (4.7-6.1); White Blood Count 11.02 K/uL (4.8-10.8)
[2019-02-20 09:52] LABS: BUN Creatinine Ratio 9.3 (10-20); Calcium 8.8 mg/dl (8.5-10.1); Creatinine Clr Calc Pharmacy 72.4 ml/min; Est GFR (African American) 105.8; Est GFR (Non-African American) 91.3; Potassium 3.5 mmol/L (3.5-5.1)
[2019-02-20] MEDS: TRAMADOL HCL 50 MG TABLET PO PRN ×3 (11:22→23:34)
--- NOTE | 2019-02-20 16:52 | Surgery Progress Note ---
Date of Service Leonel is doing very well from an ORAL SURGERY point of view Minimal swelling, oral area is healing well--no drainage, no evidence of infection, sutures in place No swelling Floor of mouth or masitor space. Still trismus as he is resistant to stretch his jaws. PLAN---OK for Discharge tomorrow AM, requested Full Liquid diet, will plan Augmentin 875 for 7-10 day (q 12 hrs) Pain meds Tylenol # 3 as needed [facility] dental clinic will follow--I have E mailed the dental staff so they are aware of the situation. Overall I am very pleased with his progress to date February 20, 2019 Results & Data Vital Signs (Past 12 Hours) Vital Signs Temp Pulse Pulse Resp BP Pulse Ox 02/20/19 16:16 114 H 02/20/19 15:27 37.3 C 02/20/19 15:04 37.8 C H 110 H 18 149/79 H 96 02/20/19 11:16 37.0 C 85 18 156/90 H 98 02/20/19 07:23 94 H 02/20/19 07:18 37.4 C 84 16 142/87 H 98 PG Care Time/CCT Total # of Minutes Spent Total Time Spent with Patient: Total time spent is greater than 50% in coordination of care (as documented) at patient's floor/unit and/or counseling patient:
--- NOTE | 2019-02-20 17:52 | Hospitalist Progress Note ---
Date of Service February 20, 2019 Assessment & Plan (1) Dental abscess: Status post extraction of 3 teeth. #17, #18 and #20 on 02/18 Patient reports significant pain today, unable to tolerate soft diet Discussed with Dr. Haywood Change to full liquid diet Continue pain control Continue IV Unasyn Most likely discharge tomorrow with Augmentin x10 days (2) Facial abscess: -Patient presenting from [facility] for evaluation of a syncopal episode which will be described below -Has been being treated for a left facial/dental abscess for the past 2 weeks with oral clindamycin -CT neck shows fluid collection centered about the left port steward space within the left lateral pterygoid muscle measuring 3.3 x 2.2 x 2.4 cm -Status post drainage (3) Syncope: -Likely vasovagal/due to hypovolemia from recent poor p.o. intake -Head CT negative -Troponin negative, EKG without acute ST changes -No recurrence, blood pressure stable (4) HTN (hypertension): -Continue with usual medications Continue to monitor (5) DVT prophylaxis: -SCDs Disposition Pending, management and evaluation of dental abscess in progress, status post extraction Subjective Follow-up for facial cellulitis/abscess, dental abscess Seen resting in bed, not in distress, somber mood States he still having significant pain on his left cheek/dental extraction site Unable to tolerate soft diet today due to pain Denies fevers or chills No other symptoms Review of Systems Review of Systems: All systems reviewed & are unremarkable except as noted in HPI & below Physical Exam Physical Exam: General- oriented x 3, not in distress, speaks in sentences with no effort or accessory muscle use Eyes- anicteric Neck- no JVD Oral-less trismus, no lip swelling, swelling of the left buccal mucosa significantly improved No bleeding or discharge noted Lungs- clear breath sounds bilaterally Heart- normal rate, regular rhythm; no murmurs Abdomen- normal bowel sounds, nondistended, soft, nontender Extremities- no pretibial edema, no calf tenderness Neuro- alert, oriented x 3; no gross focal neurologic deficits Skin- warm & dry Results & Data Vital Signs (Past 12 Hours) Vital Signs Temp Pulse Pulse Resp BP Pulse Ox 02/20/19 16:16 114 H 02/20/19 15:27 37.3 C 02/20/19 15:04 37.8 C H 110 H 18 149/79 H 96 02/20/19 11:16 37.0 C 85 18 156/90 H 98 02/20/19 07:23 94 H 02/20/19 07:18 37.4 C 84 16 142/87 H 98 Laboratory Results Laboratory Results - last 24 hr 02/19/19 02/20/19 02/20/19 19:06 09:09 09:09 WBC 11.02 H RBC 3.99 L Hgb 11.9 L Hct 34.4 L MCV 86.2 MCH 29.8 MCHC 34.6 RDW Std Deviation 40.6 RDW Coeff of Melissa 12.8 Plt Count 533 H MPV 8.8 Immature Gran % (Auto) 0.2 Neut % (Auto) 75.9 Lymph % (Auto) 16.5 [place] % (Auto) 6.6 Eos % (Auto) 0.5 Baso % (Auto) 0.3 Immature Gran # (Auto) 0.02 Neut # (Auto) 8.36 H Lymph # (Auto) 1.82 [place] # (Auto) 0.73 H Eos # (Auto) 0.06 Baso # (Auto) 0.03 Sodium 140 Potassium 3.5 Chloride 108 H Carbon Dioxide 26 Anion Gap 7.0 BUN 9 Creatinine 0.97 Est Cr Clr Drug Dosing 72.4 Est GFR ( Amer) 105.8 Est GFR (Non-Af Amer) 91.3 BUN/Creatinine Ratio 9.3 L Glucose 132 H Calcium 8.8 Stl C. diff Tox B Gene TNP
[2019-02-21] MEDS: ACETAMINOPHEN 325 MG TAB PO PRN (03:36)
[2019-02-21] MEDS: KETOROLAC TROMETHAMINE 15 MG/ML VIAL IV PRN ×2 (03:37→10:42)
[2019-02-21] MEDS: SODIUM CHLORIDE 0.9% 1000ML 1,000 ML IV SCH (03:54)
[2019-02-21] MEDS: AMPICILLIN/SULBACTAM SOD 3,000 MG in 0.9 % SODIUM CHLORIDE 100 ML IV SCH ×2 (05:58→12:18)
[2019-02-21] MEDS: LORazepam 0.25 MG/0.5 ML VIAL IV PRN (06:19)
[2019-02-21] MEDS: TRAMADOL HCL 50 MG TABLET PO PRN (07:25)
[2019-02-21] MEDS: ACETAMINOPHEN 1000 MG/100 ML IV IV SCH (07:25)
[2019-02-21] MEDS: LISINOPRIL 40 MG TAB PO SCH (08:29)
[2019-02-21] MEDS: AMLODIPINE BESYLATE 5 MG TAB PO SCH (08:30)
--- NOTE | 2019-02-21 11:28 | Hospitalist Progress Note ---
Date of Service February 21, 2019 Assessment & Plan (1) Dental abscess: Status post extraction of 3 teeth. #17, #18 and #20 on 02/[address] Sourav Haywood Surgical incision and drainage via an intraoral route of the subperiosteal and the floor of the mouth infection, left side as well as removal of very deep complex wisdom tooth #17 and carious tooth #18 and 20. Received IV Unasyn since admission, total of 5 days Received IV Ofirmev, PRN IV Toradol, tramadol, IV morphine x 1 dose Trismus and pain on the surgical site gradually improved Remained afebrile Placed on full liquid/soft diet Discussed case with Dr. Haywood, recommendations: Augmentin 875 twice daily x10 days PRN ibuprofen or Tylenol 3 for pain Continue soft diet Follow-up with [facility] (2) Facial abscess: -Has been being treated for a left facial/dental abscess for the past 2 weeks with oral clindamycin -CT neck shows fluid collection centered about the left pet training instructor space within the left lateral pterygoid muscle measuring 3.3 x 2.2 x 2.4 cm -Status post drainage, as noted in #1 (3) Syncope: -Likely vasovagal/due to hypovolemia from recent poor p.o. intake -Head CT negative -Troponin negative, EKG without acute ST changes -No recurrence, blood pressure stable (4) HTN (hypertension): -Continue with usual medications (5) DVT prophylaxis: -SCDs [facility]position [facility] Discussed and signed out case with Dr. Coulter in detail Patient will be followed up by the oral surgeon/dental service in [facility] Subjective Follow-up of facial cellulitis/abscess, dental abscess Seen resting in bed, comfortable, not in distress States oral pain, pain over the surgical site is better today Tolerating diet Denies fevers or chills Denies other symptoms Review of Systems Review of Systems: All systems reviewed & are unremarkable except as noted in HPI & below Physical Exam Physical Exam: General- oriented x 3, not in distress, speaks in sentences with no effort or accessory muscle use Eyes- anicteric Neck- no JVD Face-left cheek edema resolving, mild tenderness Oral-lip edema resolved, left oral mucosal edema also resolving, no tongue swelling, no bleeding or discharge Lungs- clear breath sounds bilaterally Heart- normal rate, regular rhythm; no murmurs Abdomen- normal bowel sounds, nondistended, soft, nontender Extremities- no pretibial edema, no calf tenderness Neuro- alert, oriented x 3; no gross focal neurologic deficits Skin- warm & dry Results & Data Vital Signs (Past 12 Hours) Vital Signs Temp Pulse Pulse Resp BP BP Pulse Ox 02/21/19 11:10 36.7 C 87 18 146/91 H 98 02/21/19 07:16 37 C 81 16 149/90 H 95 02/21/19 04:39 136/87 02/21/19 03:39 36.5 C 86 18 159/103 H 98 02/21/19 03:09 102 H
--- NOTE | 2019-02-21 11:34 | Discharge Summary ---
Date of Service February 21, 2019 Admission HPI Per Admitting Provider 48-year-old male who presents to the ED for evaluation after a syncopal event today. Patient was seen in the ED on 02/09 for a dental/facial abscess. Prior to the ED visit, patient had been taking clindamycin for 6 days. Patient was discharged from the ED on 02/09 with instructions to continue clindamycin and to follow-up with Dr. Haywood. Patient reports he has been having increased pain and swelling to the left side of his face. He reports that he has felt feverish however did not take his temperature. He has had some green, purulent drainage from his bottom molars on the left. His oral intake has been significantly reduced because he is having trouble opening his mouth. Today, patient reports that when he stood up from his bed, he felt very lightheaded and subsequently passed out. He did strike his head. He was able to be aroused and was brought to the ED for further evaluation. Patient denies associated chest pain or shortness of breath. He had some numbness and tingling of both of his hands and arms however reports he was also hyperventilating the time. No other unilateral weakness. He has had a headache since a syncopal event. No abdominal pain, vomiting, nausea. Yesterday he reports he developed some diarrhea. He denies any urinary symptoms. In the ED, initial troponin is negative and EKG does not show any acute ST changes. Head CT and cervical spine CT are negative for acute findings. Patient is hypertensive but otherwise hemodynamically stable. CT neck shows peripherally enhancing intramuscular fluid collection compatible with abscess involves the left lateral pterygoid. Patient was given IVF and IV Unasyn. Admission Exam Per Admitting Provider Constitutional: WD/WN, vitals as above Eyes: PERRL, conjunctivae normal, anicteric sclerae ENMT: Ears: no external ear abnormality Nose: + face asymmetric (Left facial edema noted); no external nose abnormality Mouth: + trismus Respiratory: normal respiratory effort, lungs clear to auscultation Cardiovascular: Rate/Rhythm: regular rate and regular rhythm Vessels: normal peripheral pulses Extremities: no edema Gastrointestinal (Abdomen): normal bowel sounds, soft, nontender, no hepatosplenomegaly Musculoskeletal: no cyanosis or clubbing, extremities motor strength 5/5 Skin: no rashes, warm and dry Neurologic: PERRL, EOMI, accommodation nl, no face palsy, no dysarthria Psychiatric: A+Ox3, euthymic affect Principal Diagnosis LEFT FACIAL CELLULITIS, TEETH ABSCESS Discharge Exam General- oriented x 3, not in distress, speaks in sentences with no effort or accessory muscle use Eyes- anicteric Neck- no JVD Face-left cheek edema resolving, mild tenderness Oral-lip edema resolved, left oral mucosal edema also resolving, no tongue swelling, no bleeding or discharge Lungs- clear breath sounds bilaterally Heart- normal rate, regular rhythm; no murmurs Abdomen- normal bowel sounds, nondistended, soft, nontender Extremities- no pretibial edema, no calf tenderness Neuro- alert, oriented x 3; no gross focal neurologic deficits Skin- warm & dry Discharge Data Allergies Allergy/AdvReac Type Severity Reaction Status Date / Time Sulfa (Sulfonamide Allergy Rash Unverified 02/18/19 08:27 Antibiotics) Consultations 02/17/19 12:22 ED Decision to Admit Stat 02/17/19 14:21 Consult Case Management - Discharge Planning Routine Consult Oromaxillofacial Surgery Routine Procedures Performed Operation Date: 02/18/19 09:10 Actual Procedures p Left Incision and Drainage Facial Cellulitis(Left) - Sourav Haywood DMD p Removal of Teeth x3 - #17, #18, and #20; (Left) - Sourav Haywood DMD Ordered Studies 02/17/19 09:42 CT cervical spine wo con Stat CERVICAL SPINE CT CT DOSE: 1260.91 mGy.cm HISTORY: fall, trauma TECHNIQUE: Multiaxial CT images of the cervical spine were performed and reformatted in the sagittal and coronal plane without the use of contrast. A dose lowering technique was utilized adhering to the principles of ALARA. COMPARISON: None. FINDINGS: No fractures. No subluxation. Prevertebral soft tissues and the C1-C2 interval are intact. No pneumothorax. Reversal of the normal lordotic curvature. Mild to moderate disc space narrowing from C3 through C7. IMPRESSION: No fractures within the cervical spine. CT head/brain wo con Stat CT head/brain wo con CLINICAL HISTORY: 48 years-old Male with syncope. Acute syncope TECHNIQUE: Multiple axial CT images of the head were obtained without contrast. A dose lowering technique was utilized adhering to the principles of ALARA. COMPARISON: CT cervical spine of same day. FINDINGS: No acute intracranial hemorrhage, midline shift, intracranial mass, hydrocephalus, territorial ischemia or abnormal extra-axial collection. Senescent calcifications noted about the left lentiform nucleus. The calvarium is intact. The paranasal sinuses, mastoid air cells, and middle ear cavities are clear. IMPRESSION: No acute intracranial abnormality or calvarial fracture. 02/17/19 09:45 CT soft tissue neck w con Stat CT soft tissue neck w con HISTORY: 48 years-old Male eval for abcess acute neck pain COMPARISON: CT head and CT cervical spine studies of same day. TECHNIQUE: Multiple axial CT images of the soft tissues of the neck were obtained following the intravenous ministration of 93 mL Optiray 320 IV contrast. A dose lowering technique was used consistent with the principals of ALARA. FINDINGS: There is a peripherally enhancing fluid collection centered about the left ends breakage clerk space within the left lateral pterygoid muscle measuring 3.3 x 2.2 x 2.4 cm (image 80 of series 106). Nasopharynx is patent. Mild prominence of the adenoid tonsils. 6 mm polypoid mucosal thickening of the right maxillary sinus. No prevertebral or retropharyngeal fluid collection. Paracentral fat planes are symmetric and well-maintained. Sublingual, submandibular and parotid glands appear unremarkable. Thyroid is unremarkable. Subcentimeter hypodense posterior right thyroid nodule. No adenopathy by CT size criteria. Glottis and subglottic airway appear unremarkable. Vascular structures about the neck appear to be within normal limits. Orbits are unremarkable. No acute intracranial abnormality. No pneumothorax. Lung apices appear clear. Spondylitic spurring and facet arthrosis of the spine. Minimal mucosal thickening about the ethmoid sinuses. IMPRESSION: 1. Peripherally enhancing intramuscular fluid collection compatible with abscess involves the left lateral pterygoid. Airway appears patent. No retropharyngeal involvement. 2. No adenopathy. 3. Mild paranasal sinus disease. XR mandible min 4V routine CLINICAL HISTORY: eval for impacted tooth left lower side COMPARISON STUDY: Neck CT 02/17/2019. FINDINGS: The most distal bilateral mandibular/lower molars are impacted. The right lower molar demonstrates partial interruption but is primarily impacted. There is also suggestion of an impacted left upper molar. No periapical lucencies identified within the mandible or maxilla. Suspect a small focal cavity within the medial aspect of ADA 9. IMPRESSION: 1. Impacted bilateral lower molars. 2. There is also suggestion of an impacted left upper molar. Hospital Course (1) Dental abscess: Status post extraction of 3 teeth. #17, #18 and #20 on 02/[address] Sourav Haywood Surgical incision and drainage via an intraoral route of the subperiosteal and the floor of the mouth infection, left side as well as removal of very deep complex wisdom tooth #17 and carious tooth #18 and 20. Received IV Unasyn since admission, total of 5 days Received IV Ofirmev, PRN IV Toradol, tramadol, IV morphine x 1 dose Trismus and pain on the surgical site gradually improved Remained afebrile Placed on full liquid/soft diet Discussed case with Dr. Haywood, recommendations: Augmentin 875 twice daily x10 days Recommend Probiotics/Yogurt daily PRN ibuprofen or Tylenol 3 for pain Continue soft diet Follow-up with surgeon/dental clinic at the correctional facility (2) Facial abscess: -Has been being treated for a left facial/dental abscess for the past 2 weeks with oral clindamycin -CT neck shows fluid collection centered about the left ends breakage clerk space within the left lateral pterygoid muscle measuring 3.3 x 2.2 x 2.4 cm -Status post drainage, as noted in #1 (3) Syncope: -Likely vasovagal/due to hypovolemia from recent poor p.o. intake -Head CT negative -Troponin negative, EKG without acute ST changes -No recurrence, blood pressure stable (4) HTN (hypertension): - hold Chlorthalidone until PO intake further improves -Continue with other usual medications monitor BP (5) DVT prophylaxis: -SCDs Disposition Return to correctional facility today Discussed and signed out case with Dr. Coulter in detail Patient will be followed up by the oral surgeon/dental service in [facility] Total Time Total Time Spent Total Time Spent (In Minutes): 45 minutes Discharge Plan Discharge Items Patient Disposition: [facility] Reason For Visit: DENTAL ABSCESS,SYNCOPE Discharge Diagnosis: Left sided facial cellulitis, Teeth abscess Discharge Goals: Diagnostic testing and Therapeutic intervention Activity: Resume your previous activity Non-emergency contact: Primary Care Provider and Surgeon Call non-emergency contact if: you have any medication questions, your symptoms worsen, your pain is not controlled, your pain is worsening and you have a fever Follow-up/Referrals: Shobha SALOMON [Primary Care Provider] - Diet: Heart Healthy and See below Diet Comment: Soft diet Addtl Provider Instructions: Please refer to accompanying hospital discharge summary for further details. Ensure adequate hydration. Probiotic/yogurt daily. Prescriptions: New amoxicillin-pot clavulanate [Augmentin] 875-125 mg tablet 1 tab PO Q12H 10 Days Qty: 20 RF: 0 Continued acetaminophen 325 mg Tablet 650 mg PO TID PRN (Reason: Pain) RF: 0 amlodipine 10 mg Tablet 10 mg PO DAILY RF: 0 lisinopril 40 mg Tablet 40 mg PO DAILY RF: 0 Discontinued clindamycin HCl 150 mg Capsule 150 mg PO TID RF: 0 chlorthalidone 25 mg Tablet 25 mg PO DAILY RF: 0 naproxen 500 mg Tablet 500 mg PO BID RF: 0 Stand-Alone Forms: [facility] Discharge Orders: Discharge Order (Routine); Ordered 02/21/19 Ordered By: Michael Ferrera Admission Data Admit Date/Time: 02/17/19 13:03 Attending Provider: Michael Ferrera Admit Provider: Jayden Murillo Primary Care Provider: Shobha SALOMON Other Providers: Jayden Murillo ; Sourav Haywood ; Suhail Adorno Service: Telemetry Medical
== END 2019-02-21 13:00 | DRG 158 ==
LOC: ED 09:21 → 2W 13:03 → SUATTDRO 13:03 → 2W 13:57